=== PATIENT | female | born 1950 | race Asian ===

== ENCOUNTER 2025-06-02 09:58 | Inpatient (IN) | payer OTHER ==
[2025-06-02] VITALS (8 sets, daily range): BP systolic 113–123; BP diastolic 55–104; PULSE 63–89; RESP 18–24; TEMP 36.418–36.6; O2SAT 90–96
[~2025-06-02] VITALS: Ht 177.8 cm; Wt 142.0 kg
[2025-06-02] MEDS: ALBUTEROL (0.083%) 2.5MG/3ML NEB HHN SCH ×2 (10:15→12:59)
[2025-06-02] MEDS: IPRATROPIUM BROMIDE (0.02%) 0.5MG/2.5ML NEB HHN SCH (10:15)
[2025-06-02 11:31] LABS: BASOPHILS % 0.3 % (0.0-2.0); EOSINOPHILS % 2.7 % (0.0-5.0); HEMATOCRIT. 45.0 % (36.0-48.0); HEMOGLOBIN. 14.2 g/dL (12.0-16.0); LYMPHOCYTES % 24.2 % (20.0-50.0); MEAN PLATELET VOLUME 9.6 fl (7.4-10.4); MONOCYTES % 6.8 % (2.0-8.0); NEUTROPHILS % 66.0 % (40.0-76.0); PLATELET 146 x1000/uL (130-400); RED BLOOD CELL COUNT 4.35 mill/uL (4.2-5.4); RED CELL DISTRIBUTION WIDTH 15.2 % (11.6-14.6)
[2025-06-02 11:42] LABS: CREATININE 0.8 mg/dL (0.6-1.0)
[2025-06-02 11:43] LABS: UREA NITROGEN BLOOD 12 mg/dL (9-23)
[2025-06-02 11:46] LABS: TROPONIN I HIGH SENSITIVITY 9 ng/L (3.0-34)
[2025-06-02] MEDS ORDERED: MAGNESIUM 2 G PREMIX 50 ML IV ONE (13:00)
[2025-06-02] MEDS ORDERED: ENOXAPARIN 40MG/0.4ML SYR SUBCUT SCH (14:15)
[2025-06-02] MEDS ORDERED: DIPHENHYDRAMINE 50MG/ML VIAL IV PRN (14:15)
[2025-06-02] MEDS ORDERED: GUAIFENESIN 200MG/10ML SUGAR FREE UDC PO PRN (14:15)
[2025-06-02] MEDS ORDERED: IPRATROPIUM/ALBUTEROL 0.5-3(2.5)MG/3ML NEB HHN PRN (14:15)
[2025-06-02] MEDS ORDERED: ACETAMINOPHEN 325MG TABLET PO PRN ×2 (14:15)
[2025-06-02] MEDS ORDERED: LORAZEPAM 0.5MG TABLET PO PRN (14:15)
[2025-06-02] MEDS ORDERED: ONDANSETRON HCL 4MG/2ML INJ IV PRN (14:15)
[2025-06-02] MEDS ORDERED: CLONIDINE 0.1MG TABLET PO PRN (14:15)
[2025-06-02] MEDS ORDERED: MAGNESIUM/ALUMINUM HYDROXIDE/SIMETHICONE 30ML UDC PO PRN (14:15)
[2025-06-02] MEDS: POTASSIUM CHLORIDE 20MEQ TABLET SR PO SCH (14:30)
[2025-06-02] MEDS ORDERED: MAGNESIUM 2 G PREMIX 50 ML IV NR ×2 (15:00→19:00)
[2025-06-02] MEDS ORDERED: METF500S9 PO (15:24)
[2025-06-02 18:04] LABS: BG BASE EXCESS 6.9 mmol/L (-2.0-3.0); BG CARBOXYHEMOGLOBIN 1.3 % (0.5-1.5); BG DEOXYHEMOGLOBIN 7.0 % (0.0-5.0); BG FLOW(L/min) 4.00 L/min; BG FRACTION INSPIRED OXYGEN 36; BG HCO3 ACT 38.6 mmol/L (21.0-28.0); BG METHEMOGLOBIN 0.2 % (0.5-1.5); BG OXYGEN SATURATION 92.9 % (94.0-98.0); BG OXYHEMOGLOBIN 91.5 % (94.0-98.0); BG PCO2 94.9 mmHg (32.0-45.0); BG PH 7.227 (7.350-7.450); BG PO2 75.3 mmHg (83.0-108.0); BG SAMPLE SITE RIGHT RADIAL; BG TOTAL HEMOGLOBIN 15.1 g/dL (12.0-16.0); BG VENT MODE NASAL CANNULA
[2025-06-02] MEDS: ENOXAPARIN 30MG/0.3ML SYR SUBCUT SCH (18:47)
[2025-06-02] MEDS: IPRATROPIUM/ALBUTEROL 0.5-3(2.5)MG/3ML NEB HHN SCH (19:42)
[2025-06-02] MEDS ORDERED: ZOLPIDEM TARTRATE 5MG TABLET PO PRN (21:00)
[2025-06-02] MEDS: FAMOTIDINE 20MG TABLET PO SCH (21:33)
[2025-06-02] MEDS: METHYLPREDNISOLONE SOD SUCC 125MG/2ML (ACT-O-VIAL) IV SCH (21:33)
[2025-06-02] MEDS: SODIUM CHLORIDE 0.9% 3ML FLUSH IVF SCH (21:34)
[2025-06-03] VITALS (14 sets, daily range): BP systolic 121–167; BP diastolic 67–114; PULSE 57–68; RESP 15–23; TEMP 36.5–37; O2SAT 89–100
[2025-06-03 00:50] LABS: BG BASE EXCESS 6.6 mmol/L (-2.0-3.0); BG CARBOXYHEMOGLOBIN 1.5 % (0.5-1.5); BG DEOXYHEMOGLOBIN 4.4 % (0.0-5.0); BG FRACTION INSPIRED OXYGEN 40; BG HCO3 ACT 36.7 mmol/L (21.0-28.0); BG METHEMOGLOBIN 0.2 % (0.5-1.5); BG OXYGEN SATURATION 95.5 % (94.0-98.0); BG OXYHEMOGLOBIN 93.9 % (94.0-98.0); BG PCO2 79.8 mmHg (32.0-45.0); BG PH 7.281 (7.350-7.450); BG PO2 80.4 mmHg (83.0-108.0); BG SAMPLE SITE RIGHT BRACHIAL; BG TOTAL HEMOGLOBIN 15.3 g/dL (12.0-16.0); BG VENT MODE MASK - BIPAP; BG VENT RATE 20.0 set
[2025-06-03] MEDS: KCL 20MEQ/100ML PREMIX 100 ML IV SCH ×2 (02:42→10:22)
[2025-06-03] MEDS ORDERED: DEXTROSE 50% WATER 50ML SYRINGE IV PRN (06:00)
[2025-06-03] MEDS ORDERED: KCL 20MEQ/100ML PREMIX 100 ML IV SCH (07:00)
[2025-06-03] MEDS: BLOOD SUGAR DIAGNOSTIC STRIP TEST SCH (07:30)
[2025-06-03 07:33] LABS: BASOPHILS % 0.1 % (0.0-2.0); EOSINOPHILS % 0.0 % (0.0-5.0); HEMATOCRIT. 44.1 % (36.0-48.0); HEMOGLOBIN. 13.9 g/dL (12.0-16.0); LYMPHOCYTES % 9.8 % (20.0-50.0); MEAN PLATELET VOLUME 9.3 fl (7.4-10.4); MONOCYTES % 0.8 % (2.0-8.0); NEUTROPHILS % 89.3 % (40.0-76.0); PLATELET 132 x1000/uL (130-400); RED BLOOD CELL COUNT 4.26 mill/uL (4.2-5.4); RED CELL DISTRIBUTION WIDTH 15.1 % (11.6-14.6)
[2025-06-03 07:40] LABS: CREATININE 1.0 mg/dL (0.6-1.0); UREA NITROGEN BLOOD 18 mg/dL (9-23)
[2025-06-03 07:42] LABS: PHOSPHORUS 4.3 mg/dL (2.5-4.9)
[2025-06-03] MEDS: INSULIN LISPRO 100 UNITS/ML SUBCUT SCH (08:00)
[2025-06-03] MEDS: METHYLPREDNISOLONE SOD SUCC 125MG/2ML (ACT-O-VIAL) IV ONE (16:00)
[2025-06-04] VITALS (17 sets, daily range): BP systolic 82–153; BP diastolic 61–96; PULSE 52–70; RESP 16–21; TEMP 36–37; O2SAT 89–99
[2025-06-04 07:02] LABS: CREATININE 1.3 mg/dL (0.6-1.0)
[2025-06-04 07:03] LABS: UREA NITROGEN BLOOD 19 mg/dL (9-23)
[2025-06-04 07:05] LABS: PHOSPHORUS 3.1 mg/dL (2.5-4.9)
[2025-06-04 07:13] LABS: BASOPHILS % 0.1 % (0.0-2.0); EOSINOPHILS % 0.0 % (0.0-5.0); HEMATOCRIT. 44.1 % (36.0-48.0); HEMOGLOBIN. 13.5 g/dL (12.0-16.0); LYMPHOCYTES % 8.4 % (20.0-50.0); MEAN PLATELET VOLUME 9.7 fl (7.4-10.4); MONOCYTES % 2.7 % (2.0-8.0); NEUTROPHILS % 88.8 % (40.0-76.0); PLATELET 137 x1000/uL (130-400); RED BLOOD CELL COUNT 4.20 mill/uL (4.2-5.4); RED CELL DISTRIBUTION WIDTH 15.0 % (11.6-14.6)
[2025-06-04 16:49] LABS: BG BASE EXCESS 3.4 mmol/L (-2.0-3.0); BG CARBOXYHEMOGLOBIN 0.8 % (0.5-1.5); BG DEOXYHEMOGLOBIN 4.5 % (0.0-5.0); BG FLOW(L/min) 5.00 L/min; BG FRACTION INSPIRED OXYGEN 40; BG HCO3 ACT 33.2 mmol/L (21.0-28.0); BG METHEMOGLOBIN 0.2 % (0.5-1.5); BG OXYGEN SATURATION 95.5 % (94.0-98.0); BG OXYHEMOGLOBIN 94.5 % (94.0-98.0); BG PCO2 75.7 mmHg (32.0-45.0); BG PH 7.260 (7.350-7.450); BG PO2 81.4 mmHg (83.0-108.0); BG SAMPLE SITE RIGHT RADIAL; BG TOTAL HEMOGLOBIN 15.0 g/dL (12.0-16.0); BG VENT MODE NASAL CANNULA
[2025-06-04] MEDS: MONTELUKAST SODIUM 10MG TABLET PO SCH (17:00)
[2025-06-05] VITALS (15 sets, daily range): BP systolic 104–155; BP diastolic 42–100; PULSE 51–74; RESP 15–23; TEMP 36–36.9; O2SAT 87–96
[2025-06-05] MEDS: TERBUTALINE SULFATE 1MG/ML VIAL SUBCUT SCH (22:02)
[2025-06-06] VITALS (19 sets, daily range): BP systolic 109–145; BP diastolic 60–96; PULSE 55–76; RESP 17–24; TEMP 36.6–36.9; O2SAT 92–98
[2025-06-06] MEDS: IPRATROPIUM/ALBUTEROL 0.5-3(2.5)MG/3ML NEB HHN SCH (09:01)
[2025-06-06] MEDS: THEOPHYLLINE ANHYDROUS 80MG/15ML ORAL SYR PO SCH (13:30)
[2025-06-07] VITALS (18 sets, daily range): BP systolic 112–155; BP diastolic 68–90; PULSE 50–71; RESP 14–24; TEMP 36.3–37.1; O2SAT 92–99
[2025-06-07 07:47] LABS: HEMATOCRIT. 42.5 % (36.0-48.0); HEMOGLOBIN. 13.8 g/dL (12.0-16.0); MEAN PLATELET VOLUME 10.1 fl (7.4-10.4); PLATELET 121 x1000/uL (130-400); RED BLOOD CELL COUNT 4.22 mill/uL (4.2-5.4); RED CELL DISTRIBUTION WIDTH 14.7 % (11.6-14.6)
[2025-06-07 10:42] LABS: CREATININE 1.0 mg/dL (0.6-1.0); UREA NITROGEN BLOOD 19.0 mg/dL (9-23)
[2025-06-07] MEDS: PREDNISONE 20MG TABLET PO SCH (17:29)
[2025-06-07 18:06] LABS: LYMPHOCYTES % MANUAL 8.0 % (20.0-60.0); MONOCYTES % MANUAL 6.0 % (2.0-8.0); NEUTROPHILS % MANUAL 86.0 % (45.0-75.0); PLATELET ESTIMATE DECREASED
[2025-06-08] VITALS (8 sets, daily range): BP systolic 112–180; BP diastolic 65–90; PULSE 65–81; RESP 15–22; TEMP 36.4–36.9; O2SAT 90–100
[2025-06-08 15:55] LABS: BG BASE EXCESS 5.8 mmol/L (-2.0-3.0); BG CARBOXYHEMOGLOBIN 1.3 % (0.5-1.5); BG DEOXYHEMOGLOBIN 7.2 % (0.0-5.0); BG FRACTION INSPIRED OXYGEN 28; BG HCO3 ACT 30.7 mmol/L (21.0-28.0); BG METHEMOGLOBIN 0.2 % (0.5-1.5); BG OXYGEN SATURATION 92.7 % (94.0-98.0); BG OXYHEMOGLOBIN 91.3 % (94.0-98.0); BG PCO2 44.7 mmHg (32.0-45.0); BG PH 7.454 (7.350-7.450); BG PO2 64.0 mmHg (83.0-108.0); BG SAMPLE SITE RIGHT RADIAL; BG TOTAL HEMOGLOBIN 15.6 g/dL (12.0-16.0); BG VENT MODE NASAL CANNULA
[2025-06-09] VITALS (13 sets, daily range): BP systolic 113–125; BP diastolic 63–77; PULSE 62–75; RESP 16–24; TEMP 36.4–37.1; O2SAT 93–99
[2025-06-09 14:28] LABS: BG BASE EXCESS 5.2 mmol/L (-2.0-3.0); BG CARBOXYHEMOGLOBIN 1.6 % (0.5-1.5); BG DEOXYHEMOGLOBIN 13.5 % (0.0-5.0); BG FRACTION INSPIRED OXYGEN 21; BG HCO3 ACT 30.5 mmol/L (21.0-28.0); BG METHEMOGLOBIN 0.0 % (0.5-1.5); BG OXYGEN SATURATION 86.3 % (94.0-98.0); BG OXYHEMOGLOBIN 84.9 % (94.0-98.0); BG PCO2 47.6 mmHg (32.0-45.0); BG PH 7.425 (7.350-7.450); BG PO2 50.1 mmHg (83.0-108.0); BG SAMPLE SITE RIGHT RADIAL; BG TOTAL HEMOGLOBIN 14.2 g/dL (12.0-16.0); BG VENT MODE ROOM AIR
[2025-06-10] VITALS (11 sets, daily range): BP systolic 106–159; BP diastolic 68–94; PULSE 57–83; RESP 16–22; TEMP 36.2–37.1; O2SAT 93–100
[2025-06-10] MEDS ORDERED: METH4TAB95 MT (13:09)
[2025-06-10] MEDS ORDERED: ALBU18HF2 IH (13:09)
== END 2025-06-10 16:00 | disposition home or self-care (01) | DRG 189 ==
LOC: ER 09:58 → 8WST 12:51 → EDBEDREQTM 12:56 → EDBEDREQ 12:56 → ENRESERV 13:45 → 5EST 22:21 → 3WST 06-07 23:05
PROVIDERS: ADMIT Internal Medicine; ATTEND Internal Medicine
PROC: 5A09357 Assistance with Respiratory Ventilation, Less than 24 Consecutive Hours, Continuous Positive Airway Pressure (ICD-10-PCS; 2025-06-03)
PROC: 5A09557 Assistance with Respiratory Ventilation, Greater than 96 Consecutive Hours, Continuous Positive Airway Pressure (ICD-10-PCS; principal; 2025-06-04)
PROC: 5A09357 Assistance with Respiratory Ventilation, Less than 24 Consecutive Hours, Continuous Positive Airway Pressure (ICD-10-PCS; 2025-06-05)
PROC: 5A09357 Assistance with Respiratory Ventilation, Less than 24 Consecutive Hours, Continuous Positive Airway Pressure (ICD-10-PCS; 2025-06-06)
DX: J96.01 Acute respiratory failure with hypoxia (principal); G93.41 Metabolic encephalopathy; E66.2 Morbid (severe) obesity with alveolar hypoventilation; J45.902 Unspecified asthma with status asthmaticus; J44.9 Chronic obstructive pulmonary disease, unspecified; Z99.81 Dependence on supplemental oxygen; J96.02 Acute respiratory failure with hypercapnia; E11.9 Type 2 diabetes mellitus without complications; J45.901 Unspecified asthma with (acute) exacerbation; Z68.41 Body mass index [BMI] 40.0-44.9, adult; E87.6 Hypokalemia; E87.5 Hyperkalemia
CPT/HCPCS: 36415; 36600; 71045; 80048; 82375; 82805; 82962; 83036; 83735; 84100; 84484; 85025; 93005; 93970; 94070; 94640; 94660; 94664; 94760; 97116; 97162; 98960; 99291; A4565; A4606; J1650; J1815; J2919; J3105; J3480; J7512